=== PATIENT | female | born 1970 | race Caucasian/White ===

== ENCOUNTER → 2020-04-18 | Outpatient (CLI) | payer BC ==
[~2020-04-18] MED LIST: METR500 PO; RIZATRIPTAN10 M3 PO; SULFAMETHOXAZO1 EAC1 PO; SULTRIDS PO
== END ==
LOC: LAB 15:19 → LAB SHORT 15:19
DX: R30.0 Dysuria (principal)
CPT/HCPCS: 87086

== ENCOUNTER 2020-10-11 07:14 | Day surgery (SDC) | payer BC ==
[~2020-10-11] VITALS: Ht 177.8 cm; Wt 76.5 kg
[~2020-10-11 07:14] MED LIST changes: +PRENATAL TABLE1 EAC2 PO; +SERT50 PO
[2020-10-11] MEDS ORDERED: Aspir 8181 MG PO (07:36)
== END 2020-10-11 09:15 | disposition home or self-care (01) ==
LOC: ORSCSDS 07:14
PROVIDERS: Internal Medicine Gastroenterology
PROC: 0DJD8ZZ Inspection of Lower Intestinal Tract, Via Natural or Artificial Opening Endoscopic (ICD-10-PCS; principal; 2020-10-11 08:30)
DX: Z12.11 Encounter for screening for malignant neoplasm of colon (principal); Z80.0 Family history of malignant neoplasm of digestive organs; K64.8 Other hemorrhoids; E78.5 Hyperlipidemia, unspecified; K57.30 Diverticulosis of large intestine without perforation or abscess without bleeding; Z79.82 Long term (current) use of aspirin; Z79.899 Other long term (current) drug therapy
CPT/HCPCS: J0461; J2405; J2704; J7120

== ENCOUNTER → 2025-05-10 | Outpatient (CLI) | payer OTHER ==
[~2025-05-10] MED LIST changes: +Aspir 8181 MG PO
== END ==
LOC: LAB SHORT 19:10 → LAB 19:10
DX: M60.272 Foreign body granuloma of soft tissue, not elsewhere classified, left ankle and foot (principal); S91.322A Laceration with foreign body, left foot, initial encounter
CPT/HCPCS: 87070; 87075; 87205

== ENCOUNTER → 2025-07-25 | Outpatient (CLI) | payer OTHER | LOC: LAB SHORT 19:19 → LAB 19:19 | DX: R30.0 Dysuria (principal) | CPT/HCPCS: 87086 ==